=== PATIENT | female | born 1995 | race Two or more races ===

== ENCOUNTER → 2020-09-13 | Outpatient (CLI) | payer OTHER | END | disposition home or self-care (01) | LOC: PRENATAL 13:00 | PROVIDERS: ATTEND Obstetrics & Gynecology Maternal & Fetal Medicine | DX: O35.0XX1 Maternal care for (suspected) central nervous system malformation in fetus, fetus 1 (principal); O35.3XX1 Maternal care for (suspected) damage to fetus from viral disease in mother, fetus 1; O98.512 Other viral diseases complicating pregnancy, second trimester; Z36.89 Encounter for other specified antenatal screening; Z3A.19 19 weeks gestation of pregnancy ==

== ENCOUNTER 2021-01-27 11:15 | Inpatient (IN) | payer OTHER ==
[~2021-01-27] VITALS: Ht 149.9 cm; Wt 3.2 kg
[2021-01-27] MEDS ORDERED: PRENATAL PO (15:26)
[2021-02-03] MEDS ORDERED: PRENATAL + DHA1 EAC1 (08:05)
== END 2021-02-04 13:23 | disposition home or self-care (01) | DRG 785 ==
LOC: OB/GYN 02-02 13:30 → O/R 02-02 13:30 → OB/GYN 02-02 18:18
PROVIDERS: ADMIT Obstetrics & Gynecology; ATTEND Obstetrics & Gynecology
PROC: 0UB70ZZ Excision of Bilateral Fallopian Tubes, Open Approach (ICD-10-PCS; 2021-02-02)
PROC: 4A1HXFZ Monitoring of Products of Conception, Cardiac Rhythm, External Approach (ICD-10-PCS; 2021-02-02)
PROC: 10D00Z1 Extraction of Products of Conception, Low, Open Approach (ICD-10-PCS; principal; 2021-02-02 16:00)
DX: O65.5 Obstructed labor due to abnormality of maternal pelvic organs (principal); O34.211 Maternal care for low transverse scar from previous cesarean delivery; Z30.2 Encounter for sterilization; Z3A.39 39 weeks gestation of pregnancy; Z37.0 Single live birth

== ENCOUNTER 2021-08-12 10:58 | Emergency (ER) | payer OTHER ==
[~2021-08-12] VITALS: Ht 149.9 cm; Wt 59.0 kg
[~2021-08-12 10:58] MED LIST: PRENATAL + DHA1 EAC1; PRENATAL PO
== END 2021-08-12 16:53 | disposition home or self-care (01) ==
LOC: ER 10:58
DX: N30.90 Cystitis, unspecified without hematuria (principal); Z20.822 Contact with and (suspected) exposure to COVID-19

== ENCOUNTER 2021-11-01 19:58 | Emergency (ER) | payer OTHER ==
[~2021-11-01] VITALS: Ht 149.9 cm; Wt 44.9 kg
== END 2021-11-02 01:14 | disposition home or self-care (01) ==
LOC: ER 19:58
DX: K52.89 Other specified noninfective gastroenteritis and colitis (principal)

== ENCOUNTER 2022-05-20 04:25 | Emergency (ER) | payer OTHER ==
[~2022-05-20] VITALS: Ht 149.9 cm; Wt 49.9 kg
== END 2022-05-20 09:58 | disposition home or self-care (01) ==
LOC: ER 04:25
DX: A04.8 Other specified bacterial intestinal infections (principal)

== ENCOUNTER 2024-05-21 18:59 | Emergency (ER) | payer OTHER ==
[~2024-05-21] VITALS: Ht 149.9 cm; Wt 53.5 kg
[2024-05-21 21:15] LABS: HEMATOCRIT 30.7 % (36.0-45.00); MEAN CELL VOLUME 78.8 fL (80.00-100.00); MEAN CORPUSCULAR HEMOGLOBIN 25.6 pg (27.00-32.0); MEAN CORPUSCULAR HGB CONC 32.5 g/dl (32.0-36.0); PLATELET COUNT 213 K/uL (150-450); RED CELL DISTRIBUTION WIDTH 16.7 % (11.5-14.5)
[2024-05-21] MEDS ORDERED: OSEL75CA PO (21:48)
== END 2024-05-21 21:59 | disposition home or self-care (01) ==
LOC: ER 19:01
DX: J11.1 Influenza due to unidentified influenza virus with other respiratory manifestations (principal); B34.9 Viral infection, unspecified; R53.81 Other malaise; Z20.822 Contact with and (suspected) exposure to COVID-19